=== PATIENT | female | born 1990 | race Caucasian/White ===

== ENCOUNTER 2016-10-01 09:46 | Emergency (ER) | payer BC ==
--- NOTE | ~2016-10-01 | CR133 ---
[facility] A Service of [facility] RADIOLOGY TEXT RESULTS PATIENT: JORDAN DYKES LOCATION: [facility] : [birth year] UNIT #: [id number] AGE: [address]: Blade Blunt MD SEX: F ORDER DR: [id number] [facility] [address] [place], [place] [address] [id number] E MR#: [id number] Acc #: [id number] NAME: JORDAN DYKES : 1990 SEX: F STUDY DATE/TIME: UNIT: [facility] ROOM: STUDY DESCRIPTION: CR Forearm 2 View Rt Attending Physician: Blade Blunt M.D. Ordering Physician: Blade Blunt M.D. Primary Care Physician: Primary Care Physician No MEDICAL IMAGING REPORT This report is preliminary unless electronic signature is present EXAM Right forearm 10/01/2016 1000 hours HISTORY 26-year-old who suffered laceration to forearm after punching a window today. Laceration to forearm. Pain, possible foreign body. COMPARISON None FINDINGS AP and lateral views demonstrate a normal appearance to the radius and ulna. There is no fracture, dislocation or foreign body. There is obliquely oriented soft tissue air with open wound in the palmar aspect of the distal forearm. IMPRESSION Soft tissue defect palmar aspect distal forearm with no associated fracture, dislocation or foreign body. Dictated by... Maddie Tang M.D. THIS IS AN ELECTRONICALLY VERIFIED REPORT Maddie Tang M.D. at 10/01/2016 2:30 PM SMM/sharon TD: 10/01/2016 11:55 JOB #: [id number] MEDICAL IMAGING REPORT Page 1 of 1 COPY
== END 2016-10-01 13:23 ==
LOC: CED 09:46
DX: S66.921A Laceration of unspecified muscle, fascia and tendon at wrist and hand level, right hand, initial encounter (principal); W25.XXXA Contact with sharp glass, initial encounter; Y92.9 Unspecified place or not applicable
CPT/HCPCS: 12004; 36415; 73090; 90471; 90715; 96374; 96375; 99285; 99291; J1170; J2270; J2405